=== PATIENT | female | born 1945 | race Caucasian/White ===

== ENCOUNTER 2018-06-11 10:15 | Outpatient (CLI) | payer BC ==
--- NOTE | 2018-06-11 11:11 | MMO ---
BILATERAL SCREENING MAMMOGRAM: HISTORY: A 73-year-old female for screening mammography. COMPARISON: 06/07/17, 06/06/16, 06/03/15. FINDINGS: Bilateral MLO and CC views of the breasts show scattered fibroglandular breast tissue. There is no e vidence of suspicious mass, suspicious clustered microcalcifications, or area of architectural distor tion. Interpretation of this mammogram is performed with the assistance of computer-aided detection. IMPRESSION: BI-RADS category 1 - negative. Annual screening mammography is recommended. BIRADS 1: Negative Routine annual screening mammography (for women over age 40) POS: DIANNA
== END 2018-06-11 10:16 | disposition home or self-care (01) ==
LOC: SCSMAMMO 10:15
PROVIDERS: ATTEND Obstetrics & Gynecology
DX: Z12.31 Encounter for screening mammogram for malignant neoplasm of breast (principal)
CPT/HCPCS: 77067

== ENCOUNTER 2019-07-02 13:59 | Outpatient (CLI) | payer BC, MEDICARE ==
[2019-07-02 15:12] LABS: #Basophils 0.1 thou/uL (0.0-0.2); #Eosinphils 0.2 thou/uL (0.0-0.7); #Lymphocytes 1.8 thou/uL (1.20-3.40); #Monocytes 0.6 thou/uL (0.11-0.59); %Basophils 1.5 % (0.0-1.0); %Eosinophils 3.1 % (0.0-10.0); %Lymphocytes 26.7 % (21.0-51.0); %Monocytes 8.4 % (0.0-10.0); %Neutrophils 60.2 % (42.0-75.0); Hemoglobin 13.7 g/dL (12.0-16.0); Mean Corpuscular HGB CONC 33.6 g/dL (32.0-36.0); Mean Corpuscular Hemoglobin 31.7 pg (27.0-31.0); Mean Corpuscular Volume 94.3 fL (78.0-98.0); Mean Platelet Volume 8.3 fL (7.4-10.4); Platelet Count 270 thou/uL (130-400); RBC Distribution Width 12.1 % (11.5-14.5); Red Blood Cell (RBC) Count 4.33 mill/uL (4.20-5.40); White Blood Cell (WBC) Count 6.6 thou/uL (4.8-10.8)
[2019-07-02 15:31] LABS: Anion Gap 13 mmol/L (10-20); BUN (Urea Nitrogen) 18 mg/dL (9.8-20.1); Calc. Creatinine Clearance 0 mL/min (70-130); Calcium 9.9 mg/dL (7.8-10.44); Carbon Dioxide 30 mmol/L (23-31); Chloride 103 mmol/L (98-107); Estimated GFR-MDRD 59; Glucose 130 mg/dL (83-110); Potassium 3.6 mmol/L (3.5-5.1); Sodium 142 mmol/L (136-145)
== END 2019-07-02 14:00 | disposition home or self-care (01) ==
LOC: LABBT 13:59
PROVIDERS: ATTEND Surgery
DX: Z01.818 Encounter for other preprocedural examination (principal); D05.11 Intraductal carcinoma in situ of right breast
CPT/HCPCS: 80048; 85025; 93005; 93010

== ENCOUNTER 2019-07-08 06:51 | Day surgery (SDC) | payer BC, MEDICARE ==
[2019-07-02 14:09] VITALS: BMI 26.1
[2019-07-08] MEDS ORDERED: Bupivacaine/Epinephrine 0.25% 30 ML VIAL ONE (09:24)
[2019-07-08] MEDS ORDERED: Methylene Blue 50 MG/10 ML AMPUL ONE (09:24)
[2019-07-08] MEDS ORDERED: Lidocaine 2% PF 5 ML VIAL ONE (09:24)
[2019-07-08] MEDS ORDERED: Fentanyl 100 MCG/2 ML VIAL ONE ×3 (09:26→12:36)
[2019-07-08] MEDS ORDERED: Midazolam HCl 2 mg/2 ml Vial ONE (10:12)
--- NOTE | 2019-07-08 11:13 | MMO ---
EXAM: MAMMO Surgial Specimen PROVIDED CLINICAL HISTORY: Post excision COMPARISON: Needle localization performed same date FINDINGS: Specimen radiograph demonstrates the distal aspects of the wire with adjacent biopsy site marker. IMPRESSION: As above.
--- NOTE | 2019-07-08 11:18 | MMO ---
MAMMOGRAPHIC GUIDED NEEDLE LOCALIZATION OF RIGHT BREAST: CLINICAL HISTORY: DCIS, within the medial, central right breast. PROCEDURE: Informed consent was obtained and the patient was escorted to the procedural suite. Right breast was placed into compression. Biopsy site denoted by marking clip was localized. Topical anesthesia was performed subsequent to standard sterile prepping and draping. Subsequently, a 7.5 cm [place] needle wa s advanced through the site of biopsy with needle stabilized by wire deployment. This was secured to the patient's skin, and confirmed with mammographic imaging. No procedural complications. The patient was transferred to nuclear medicine department to undergo right breast lymphoscintigraphy . IMPRESSION: Technically successful mammographic guided needle and wire localization of the right breast. Transcribed Date/Time: 07/08/2019 12:09 PM
--- NOTE | 2019-07-08 11:22 | NM ---
RIGHT BREAST LYMPHOSCINTIGRAPHY: RADIOPHARMACEUTICAL: 0.425 mCi technetium 9M filtered sulfur colloid, subcutaneous. FINDINGS: Subsequent to intradermal injection, scintigraphic imaging does reveal localization of radiotracer wi thin a right axillary lymph node. IMPRESSION: Localization of radiotracer to right axillary lymph node. Transcribed Date/Time: 07/08/2019 12:05 PM
[2019-07-08] MEDS ORDERED: HYDROcodone/Acetaminophen 5/325 mg Tablet ONE ×2 (12:34→12:35)
[2019-07-08] MEDS ORDERED: Ondansetron PF 4 MG/2 ML Vial ONE (13:54)
[2019-07-08] MEDS ORDERED: Lidocaine 1% PF 5 ML VIAL ONE (13:54)
[2019-07-08] MEDS ORDERED: Dexamethasone 20 MG/5 ML VIAL ONE (13:54)
[2019-07-08] MEDS ORDERED: PROPOFOL 200 MG/20 ML VIAL ONE (13:54)
--- NOTE | 2019-07-09 09:50 | OP ---
DATE OF PROCEDURE: 07/08/2019 POSTOPERATIVE DIAGNOSIS: Right breast ductal carcinoma in situ, high-grade. POSTOPERATIVE DIAGNOSIS: Right breast ductal carcinoma in situ, high-grade. PROCEDURES PERFORMED: 1. Right breast partial mastectomy after needle localization. 2. Right breast deep axillary node biopsy (sentinel node protocol). ANESTHESIA: General. ESTIMATED BLOOD LOSS: Minimal. COMPLICATIONS: None. SPECIMEN: 1. Right breast specimen marked with 2 short superior, 1 long lateral, sent to Path for final diagnosis. 2. [place] node x2. DESCRIPTION OF PROCEDURE: The patient was taken to the operating room and laid supine on the operating room table. She had undergone preoperative needle localization of the abnormality in the right breast as well as lymphoscintigraphy, which showed uptake in the right axilla. She was taken to the operating and laid spine on the table. After general anesthetic was obtained, 5 mL of methylene blue dye was infiltrated under the nipple and massaged for a few minutes. The right breast, chest, axilla were all prepped and draped in a sterile fashion. A curved incision was made at the inferior hairline of the right axilla and the Neoprobe was used to find an area of increased uptake. A blue lymph node was removed with high counts on the back table. Counts dropped to near 0 in the background. The wound was irrigated and closed using 3-0 Vicryl, 4-0 Monocryl, and Dermabond. Next, a transverse incision was made in the upper inner quadrant of the right breast. Flaps were raised superiorly, inferiorly and laterally around the end of the needle localization wire. The specimen was sent to the specimen x-ray, which reveals the clip to be in the specimen. It was sent to Path for final diagnosis. The wound was irrigated. Local anesthetic was applied. The incision was closed using 3-0 Vicryl, 4-0 Monocryl, and Dermabond. The patient was sent to Recovery in stable condition. All instrument counts, needle counts and lap counts are correct. Job ID: [id number]
== END 2019-07-08 14:40 | disposition home or self-care (01) ==
LOC: SDC 06:51
PROVIDERS: ATTEND Surgery
PROC: 07B50ZX Excision of Right Axillary Lymphatic, Open Approach, Diagnostic (ICD-10-PCS; principal; 2019-07-08)
PROC: 0HBT0ZZ Excision of Right Breast, Open Approach (ICD-10-PCS; principal; 2019-07-08)
DX: D05.11 Intraductal carcinoma in situ of right breast (principal); I10 Essential (primary) hypertension; E11.9 Type 2 diabetes mellitus without complications; E78.5 Hyperlipidemia, unspecified; K58.9 Irritable bowel syndrome, unspecified; E66.9 Obesity, unspecified; Z68.26 Body mass index [BMI] 26.0-26.9, adult; Z91.041 Radiographic dye allergy status; Z88.5 Allergy status to narcotic agent; Z88.8 Allergy status to other drugs, medicaments and biological substances; Z79.84 Long term (current) use of oral hypoglycemic drugs; Z79.899 Other long term (current) drug therapy
CPT/HCPCS: 19281; 76098; 78195; 88305; 88307; 88341; 88342; A9541; J0690; J1100; J2001; J2250; J2405; J2704; J3010; Q9968